=== PATIENT | female | born 1970 ===

== ENCOUNTER 2024-12-06 12:30 | Inpatient (IN) | payer OTHER ==
[~2024-12-06] VITALS: Ht 167.6 cm; Wt 130.6 kg
[2024-12-06 14:33] LABS: COVID-19 AG NEGATIVE (NEGATIVE)
[2024-12-06 14:59] VITALS: BP 123/78
[2024-12-06 15:03] VITALS: BP 150/76
[2024-12-06 15:03] LABS: RH POSITIVE
[2024-12-12] MEDS ORDERED: CEFAZOLIN SODIUM 1,000 MG VIAL ONE ×2 (08:13→16:15)
[2024-12-12] MEDS ORDERED: POVIDONE-IODINE 118 ML BOTT TOP ONE (10:32)
[2024-12-12] MEDS ORDERED: HEMOSTATIC MATRIX WITH THROMBIN KIT TOP ONE (12:30)
[2024-12-12] MEDS ORDERED: METRONIDAZOLE/SODIUM CHLORIDE 100 ML IV ONE (12:30)
[2024-12-12] MEDS ORDERED: SURGIFLO APPLICATOR 1 EACH APPL TOP ONE (12:30)
[2024-12-12] MEDS ORDERED: SUGAMMADEX SODIUM 200 MG/2 ML VIAL IV ONE (12:48)
[2024-12-12] MEDS ORDERED: MORPHINE SULFATE 4 MG/ML CARTRIDGE IV PRN (13:15)
[2024-12-12] MEDS ORDERED: RINGERS SOLUTION,LACTATED 1,000 ML IV SCH (13:15)
[2024-12-12] MEDS ORDERED: OxyCODONE HCL 5 MG TABLET (ROXICODONE) PO PRN (13:15)
[2024-12-12] MEDS ORDERED: MORPHINE SULFATE 4 MG/ML VIAL IV ONE (15:30)
[2024-12-12] MEDS ORDERED: SIMETHICONE 125 MG CAPSULE PO ONE ×2 (16:14→20:19)
[2024-12-12] MEDS ORDERED: METOCLOPRAMIDE HCL 5 MG/ML VIAL ONE (16:14)
[2024-12-12 16:33] LABS: HEMATOCRIT 36.3 % (36.0-45.00); HEMOGLOBIN 11.7 g/dL (12.0-15.00); MEAN CELL VOLUME 87.7 fL (80.00-100.00); MEAN CORPUSCULAR HEMOGLOBIN 28.4 pg (27.00-32.0); MEAN CORPUSCULAR HGB CONC 32.4 g/dl (32.0-36.0); PLATELET COUNT 263 K/uL (150-450); RED BLOOD COUNT 4.14 M/uL (4.00-6.00); RED CELL DISTRIBUTION WIDTH 14.5 % (11.5-14.5)
[2024-12-12] MEDS ORDERED: CEFAZOLIN SODIUM 1,000 MG VIAL IV SCH (17:00)
[2024-12-12] MEDS ORDERED: METOCLOPRAMIDE HCL 5 MG/ML VIAL IV SCH (17:00)
[2024-12-12] MEDS ORDERED: SIMETHICONE 125 MG CAPSULE PO SCH (17:00)
[2024-12-12 17:03] LABS: ALBUMIN 3.6 gm/dL (3.4-5.0); CALCIUM 8.6 mg/dL (8.5-10.1); CREATININE SERUM 0.62 mg/dL (0.55-1.02); GFR 100.31; PHOSPHOROUS 3.9 mg/dL (2.5-4.9); POTASSIUM 4.47 mEq/L (3.5-5.1)
[2024-12-12] MEDS ORDERED: ACETAMINOPHEN 500 MG GEL..CAP PO SCH (18:00)
[2024-12-12] MEDS ORDERED: FAMOTIDINE/PF 20 MG/2 ML VIAL ONE (20:20)
[2024-12-12] MEDS ORDERED: GABAPENTIN 300 MG CAPSULE PO ONE (20:20)
[2024-12-12] MEDS ORDERED: FAMOTIDINE/PF 20 MG/2 ML VIAL IV PUSH SCH (21:00)
[2024-12-12] MEDS ORDERED: GABAPENTIN 300 MG CAPSULE PO SCH (21:00)
[2024-12-12] MEDS ORDERED: DOCUSATE SODIUM 100MG CAP PO SCH (21:00)
[2024-12-12 22:04] VITALS: BP 123/78
[2024-12-13] VITALS: BP 131/70
[2024-12-13 02:54] LABS: HEMATOCRIT 32.3 % (36.0-45.00); HEMOGLOBIN 10.8 g/dL (12.0-15.00); MEAN CELL VOLUME 85.7 fL (80.00-100.00); MEAN CORPUSCULAR HEMOGLOBIN 28.6 pg (27.00-32.0); MEAN CORPUSCULAR HGB CONC 33.4 g/dl (32.0-36.0); PLATELET COUNT 256 K/uL (150-450); RED BLOOD COUNT 3.77 M/uL (4.00-6.00)
[2024-12-13 03:27] LABS: ALBUMIN 3.2 gm/dL (3.4-5.0); CALCIUM 8.7 mg/dL (8.5-10.1); CREATININE SERUM 0.53 mg/dL (0.55-1.02); GFR 120.21; PHOSPHOROUS 3.1 mg/dL (2.5-4.9); POTASSIUM 3.89 mEq/L (3.5-5.1)
[2024-12-13 08:16] VITALS: BP 108/73
[2024-12-13] MEDS ORDERED: ENOXAPARIN SODIUM 40 MG/0.4 ML SYRINGE SUBCUTANEO SCH (09:00)
== END 2024-12-13 12:13 | disposition home or self-care (01) | DRG 743 ==
LOC: O/R 12-12 05:49 → SURH 12-12 12:30 → OB/GYN 12-12 20:28 → SURH 12-12 23:15 → OB/GYN 12-13 12:13
PROVIDERS: Obstetrics & Gynecology; ADMIT Obstetrics & Gynecology Gynecologic Oncology; ATTEND Obstetrics & Gynecology Gynecologic Oncology
PROC: 07BC4ZZ Excision of Pelvis Lymphatic, Percutaneous Endoscopic Approach (ICD-10-PCS; 2024-12-12)
PROC: 0UT24ZZ Resection of Bilateral Ovaries, Percutaneous Endoscopic Approach (ICD-10-PCS; 2024-12-12)
PROC: 0UT74ZZ Resection of Bilateral Fallopian Tubes, Percutaneous Endoscopic Approach (ICD-10-PCS; 2024-12-12)
PROC: 8E0W4CZ Robotic Assisted Procedure of Trunk Region, Percutaneous Endoscopic Approach (ICD-10-PCS; 2024-12-12)
PROC: 0UT94ZZ Resection of Uterus, Percutaneous Endoscopic Approach (ICD-10-PCS; principal; 2024-12-12 23:15)
DX: N80.03 Adenomyosis of the uterus (principal); N72 Inflammatory disease of cervix uteri
CPT/HCPCS: 58548; S2900